=== PATIENT | male | born 1985 ===

== ENCOUNTER 2016-03-30 11:14 | Emergency (ER) | payer OTHER ==
--- NOTE | 2016-03-30 11:44 | Emergency Department Report ---
Chief Complaint: Chest Pain Stated Complaint: CHEST PAIN Time Seen by Provider: 03/30/16 11:41 - HPI History of Present Illness: 31 y/o male complain x 2 days with numbness to the left arms .pt state he anxiety and unaware of why.pt complain of chest pain as 8/10 at present .pt state that he took a goody powder a couple of hours ago . - ROS Review of Systems: per HPI - Exam Vital Signs: Vital Signs 03/30/16 11:25 Temperature 97.8 F Pulse Rate 83 Respiratory 18 Rate Blood Pressure 153/94 O2 Sat by Pulse 100 Oximetry Physical Exam: GENERAL: The patient is well-developed and well-nourished. Patient is in NAD. HENT: Normocephalic. Atraumatic. Patient has moist mucous membranes. Throat: No erythema, swelling or exudates. EYES: Extraocular motions are intact, PERRL NECK: Supple. No meningitic signs are noted. There is no adenopathy noted. CHEST/LUNGS: Clear to auscultation bilaterally. No wheezing, rales or rhonchi noted. There is no respiratory distress noted. HEART/CARDIOVASCULAR: Regular rate and rhythm. Normal S1 S2. No murmurs, rubs , clicks, or gallops. ABDOMEN: Abdomen is soft, nontender.. Bowel sounds normoactive. There is no abdominal distention. Negative rebound tenderness. : Deferred. SKIN: There is no rash. There is no edema. There is no diaphoresis. NEURO: The patient is A&Ox3. The patient has no focal neurologic deficits. MUSCULOSKELETAL: There is no tenderness or deformity. There is no limitation range of motion. PSYCH: Pt has appropriate mood and affect. MSE screening note: Focused history and physical exam performed. Due to findings the following was ordered: ED Disposition for MSE Condition: Stable
[2016-03-30 11:59] LABS: Basophils % (Auto) 0.8 % (0.0-1.8); Hematocrit 44.3 % (35.5-45.6); Hemoglobin 14.7 gm/dl (11.8-15.2); Mean Corpuscular HGB Conc 33 % (32-34); Mean Corpuscular Hemoglobin 31 pg (28-32); Mean Corpuscular Volume 93 fl (84-94); Platelet Count 231 K/mm3 (140-440); Red Blood Count 4.78 M/mm3 (3.65-5.03); Red Cell Distribution Width 13.2 % (13.2-15.2); White Blood Count 7.7 K/mm3 (4.5-11.0)
[2016-03-30 12:16] LABS: Creatine Kinase MB 1.9 ng/mL (0.0-4.0)
[2016-03-30 12:17] LABS: Anion Gap 17 mmol/L; BUN/Creatinine Ratio 8.18; Blood Urea Nitrogen 9 mg/dL (9-20); Calcium 8.8 mg/dL (8.4-10.2); Carbon Dioxide 25 mmol/L (22-30); Chloride 100.6 mmol/L (98-107); Creatine Kinase 425 units/L (55-170); Glucose 107 mg/dL (75-100); Sodium 139 mmol/L (137-145)
[2016-03-30 16:58] VITALS: BP 155/93
--- NOTE | 2016-03-31 11:20 | XRay Report ---
ROUTINE CHEST, TWO VIEWS: HISTORY: chest pain. The trachea, heart, mediastinal contour, lung carrizales and bony thorax are unremarkable. IMPRESSION: Unremarkable chest x-ray.
--- NOTE | 2016-03-31 14:44 | ED Elopement Review ---
ED Pt Elopement review - Results review Lab results: Laboratory Tests 03/30/16 03/30/16 11:49 11:49 WBC 7.7 RBC 4.78 Hgb 14.7 Hct 44.3 MCV 93 MCH 31 MCHC 33 RDW 13.2 Plt Count 231 Lymph % (Auto) 17.6 [place] % (Auto) 7.2 Eos % (Auto) 2.0 Baso % (Auto) 0.8 Lymph # 1.4 [place] # 0.6 Eos # 0.2 Baso # 0.1 Seg Neutrophils % 72.4 H Seg Neutrophils # 5.5 Sodium 139 Potassium 4.0 Chloride 100.6 Carbon Dioxide 25 Anion Gap 17 BUN 9 Creatinine 1.1 Estimated GFR > 60 BUN/Creatinine Ratio 8.18 Glucose 107 H Calcium 8.8 Total Creatine Kinase 425 H CK-MB (CK-2) 1.9 CK-MB (CK-2) Rel Index 0.4 Troponin T < 0.010 - Call Back decision Pt Call Back Decision: No action required
== END 2016-03-30 19:01 | disposition left against medical advice (07) ==
LOC: ED 11:14
DX: R20.0 Anesthesia of skin (principal); R07.9 Chest pain, unspecified; F41.9 Anxiety disorder, unspecified; Z53.21 Procedure and treatment not carried out due to patient leaving prior to being seen by health care provider
CPT/HCPCS: 36415; 71020; 80048; 82550; 82553; 84484; 85025; 93005; 93010